=== PATIENT | female | born 1975 | race Caucasian/White ===

== ENCOUNTER → 2019-09-27 | Outpatient (CLI) | payer SELFPAY | END | disposition home or self-care (01) | LOC: RADUSWWP 11:40 | PROVIDERS: ATTEND Pain Medicine Pain Medicine | DX: I73.9 Peripheral vascular disease, unspecified (principal) | CPT/HCPCS: 93922 ==

== ENCOUNTER 2019-10-23 22:33 | Emergency (ER) | payer BC ==
[2019-10-23 22:41] VITALS: BP 122/83; PULSE 105; RESP 18; TEMP 97.8
[2019-10-23] MEDS ORDERED: MORPHINE SULFATE 4 MG/ML SYRINGE IM STA (23:18)
[2019-10-23] MEDS ORDERED: ORPHENADRINE 30 MG/ML 2 ML VIAL IM STA (23:18)
[2019-10-23] MEDS ORDERED: KETOROLAC 60 MG/2 ML VIAL IM STA (23:18)
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
--- NOTE | 2019-10-23 23:56 | XR ---
EXAMINATION TYPE: XR lumbar spine 2 or 3V DATE OF EXAM: 10/23/2019 COMPARISON: NONE HISTORY: Back pain TECHNIQUE: 3 views FINDINGS: Lumbar vertebra have normal spacing and alignment. Posterior elements are intact. Sacroilia c joints appear normal. IMPRESSION: Normal lumbar spine exam.
--- NOTE | 2019-10-23 23:57 | XR ---
EXAMINATION TYPE: XR thoracic spine 2V DATE OF EXAM: 10/23/2019 COMPARISON: NONE HISTORY: Back pain TECHNIQUE: 3 views FINDINGS: Vertebra have normal spacing and alignment. Posterior ARE intact. There is no thoracic para spinal mass. There is no sign of compression fracture. IMPRESSION: Normal thoracic spine exam.
[2019-10-24 00:27] LABS: Appearance,Urine Cloudy (Clear); Bilirubin,Urine Negative (Negative); Blood,Urine Moderate (Negative); Color,Urine Yellow; Glucose,Urine (UA) Negative (Negative); Ketones,Urine Negative (Negative); Leukocyte Esterase,Urine Negative (Negative); Mucus,Urine Rare /hpf; Nitrite,Urine Negative (Negative); PH, Urine 6.5 (5.0-8.0); Protein,Urine Negative (Negative); RBC,Urine 23 /hpf (0-5); Specific Gravity,Urine 1.014 (1.001-1.035); Squamous Epithelial Cell,Urine 7 /hpf (0-4); Urobilinogen,Urine <2.0 mg/dL (<2.0); WBC,Urine 1 /hpf (0-5)
== END 2019-10-24 01:00 | disposition home or self-care (01) ==
LOC: EC 22:33
DX: M54.5 Low back pain (principal); G89.29 Other chronic pain; M54.6 Pain in thoracic spine; R31.9 Hematuria, unspecified; R20.0 Anesthesia of skin; R20.2 Paresthesia of skin; M79.604 Pain in right leg; M79.605 Pain in left leg; F17.200 Nicotine dependence, unspecified, uncomplicated; Z79.891 Long term (current) use of opiate analgesic; Z79.899 Other long term (current) drug therapy
CPT/HCPCS: 81001; 72070; 72100; 99284; 96372 ×3; J2270; J2360; J1885

== ENCOUNTER → 2023-12-28 | Outpatient (CLI) | payer BC ==
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
== END | disposition home or self-care (01) ==
LOC: RADMRIMAIN 18:51
PROVIDERS: ATTEND Physical Medicine & Rehabilitation
DX: M47.812 Spondylosis without myelopathy or radiculopathy, cervical region (principal); M43.16 Spondylolisthesis, lumbar region; M41.86 Other forms of scoliosis, lumbar region; R20.0 Anesthesia of skin; Z98.890 Other specified postprocedural states
CPT/HCPCS: 72156; A9585